=== PATIENT | female | born 1975 | race Caucasian/White ===

== ENCOUNTER 2017-01-20 19:55 | Emergency (ER) | payer MEDICAID ==
[~2017-01-20] VITALS: Ht 152.4 cm; Wt 54.4 kg
[2017-01-20 20:00] VITALS: BP 142/80
--- NOTE | 2017-01-20 20:13 | NUR ---
PT TAKEN TO [facility]
--- NOTE | 2017-01-20 20:16 | NUR ---
PT MOVED TO BED 7
--- NOTE | 2017-01-20 20:17 | NUR ---
Dr. Osman evaluating patient at bedside.
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
--- NOTE | 2017-01-20 20:25 | NUR ---
PT TAKEN TO XRAY
--- NOTE | 2017-01-20 20:30 | NUR ---
PT RETURN FROM XRAY
[2017-01-20] MEDS ORDERED: ACETAMINOPHEN EXTRA STRENGTH 500 MG TAB PO ONE (20:40)
[2017-01-20] MEDS ORDERED: NEOMYCIN/POLYMYXIN/BACITRACIN 0.9 GM/1 PKT TP ONE (20:44)
[2017-01-20 20:58] VITALS: BP 132/84
--- NOTE | 2017-01-20 20:58 | NUR ---
Patient discharged with v/s stable. Written and verbal after care instructions given and explained. Patient alert, oriented and verbalized understanding of instructions. Ambulatory with steady gait. All questions addressed prior to discharge. ID band removed. Patient advised to follow up TO THIS ER IN 2 DAYS. Rx of NAPROSYN 500 MG given. Patient educated on indication of medication including possible reaction and side effects. Opportunity to ask questions provided and answered.
== END 2017-01-20 20:58 | disposition home or self-care (01) ==
LOC: MED 19:55
DX: S62.522A Displaced fracture of distal phalanx of left thumb, initial encounter for closed fracture (principal); S60.112A Contusion of left thumb with damage to nail, initial encounter; R03.0 Elevated blood-pressure reading, without diagnosis of hypertension; W23.0XXA Caught, crushed, jammed, or pinched between moving objects, initial encounter; Y93.89 Activity, other specified; Y92.89 Other specified places as the place of occurrence of the external cause; Y99.8 Other external cause status
CPT/HCPCS: 11730; 11750; 73140; 90471; 90715; 99284

== ENCOUNTER 2018-05-06 11:47 | Emergency (ER) | payer MEDICAID, OTHER ==
[~2018-05-06] VITALS: Ht 152.4 cm; Wt 61.9 kg
[2018-05-06 11:55] VITALS: BP 204/143
[2018-05-06] MEDS ORDERED: IBUPROFEN 600 MG TAB PO ONE (12:15)
[2018-05-06] MEDS ORDERED: hydrOXYzine HCL 25 MG TAB PO ONE (12:15)
[2018-05-06] MEDS ORDERED: SILVER SULFADIAZINE 1% 50 GM JAR TP ONE (12:15)
[2018-05-06] MEDS ORDERED: HYDROcodone/APAP 5/325 MG 1 TAB TAB PO ONE (12:15)
[2018-05-06 12:52] VITALS: BP 131/87
== END 2018-05-06 12:50 | disposition home or self-care (01) ==
LOC: MED 11:47
DX: T22.211A Burn of second degree of right forearm, initial encounter (principal); X10.2XXA Contact with fats and cooking oils, initial encounter; Y93.G3 Activity, cooking and baking; Y92.89 Other specified places as the place of occurrence of the external cause; Y99.8 Other external cause status
CPT/HCPCS: 16020; 90715; 99284

== ENCOUNTER 2018-05-08 11:23 | Emergency (ER) | payer OTHER ==
[~2018-05-08] VITALS: Ht 162.6 cm; Wt 64.4 kg
[2018-05-08 11:29] VITALS: BP 169/99
[2018-05-08] MEDS: NEOMYCIN/POLYMYXIN/BACITRACIN 0.9 GM/1 PKT TP ONE (12:43)
[2018-05-08 12:45] VITALS: BP 164/95
== END 2018-05-08 12:45 | disposition home or self-care (01) ==
LOC: MED 11:23
DX: T22.211A Burn of second degree of right forearm, initial encounter (principal); R03.0 Elevated blood-pressure reading, without diagnosis of hypertension; X10.2XXA Contact with fats and cooking oils, initial encounter; Y93.G3 Activity, cooking and baking; Y92.89 Other specified places as the place of occurrence of the external cause; Y99.8 Other external cause status
CPT/HCPCS: 16020; 99284